=== PATIENT | female | born 1985 | race Caucasian/White ===

== ENCOUNTER 2017-06-07 09:30 | Emergency (ER) | payer MEDICAID | END 2017-06-07 12:15 | disposition home or self-care (01) | LOC: D.ER 09:30 | DX: B34.9 Viral infection, unspecified (principal); F17.200 Nicotine dependence, unspecified, uncomplicated ==

== ENCOUNTER 2018-05-30 18:28 | Emergency (ER) | payer MEDICAID ==
[~2018-05-30] VITALS: Ht 154.9 cm; Wt 56.2 kg
[2018-05-30 18:32] VITALS: BP 146/96; Ht 154.9 cm; Wt 56.2 kg
[2018-05-30] MEDS ORDERED: ALDACTONE100 MG PO (18:34)
[2018-05-30] MEDS ORDERED: BUPROPION XL150 MG PO (18:34)
[2018-05-30] MEDS ORDERED: CELEXA20 MG PO (18:35)
[2018-05-30 19:39] LABS: HCG URINE NEGATIVE (NEGATIVE)
== END 2018-05-30 20:13 | disposition home or self-care (01) ==
LOC: D.ER 18:28
PROVIDERS: Family Medicine
DX: Z32.00 Encounter for pregnancy test, result unknown (principal); F17.200 Nicotine dependence, unspecified, uncomplicated

== ENCOUNTER 2018-08-10 02:04 | Emergency (ER) | payer MEDICAID ==
[~2018-08-10] VITALS: Ht 154.9 cm; Wt 60.9 kg
[~2018-08-10 02:04] MED LIST: ALDACTONE100 MG PO; BUPROPION XL150 MG PO; CELEXA20 MG PO
[2018-08-10 02:08] VITALS: Ht 154.9 cm; Wt 60.9 kg
[2018-08-10] MEDS ORDERED: PRENAVITE1 TAB PO (02:09)
[2018-08-10] MEDS ORDERED: ZOFRAN4 MG PO (02:09)
[2018-08-10 02:28] LABS: BASOPHILS 0.3 % (0-2); HEMATOCRIT 39.2 % (36.0-48.0); HEMOGLOBIN 13.5 g/dL (12-16); IMMATURE GRANULOCYTES 0.1 % (0-5); LYMPHOCYTES 22.4 % (15-50); MCH 32.8 pg (26.0-34.0); MCHC 34.4 g/dL (31.0-37.0); MCV 95.1 fL (80.0-100.0); MEAN PLATELET VOLUME 10.3 fL (7.4-10.4); NEUTROPHILS 71.2 % (40-80); RBC 4.12 10x6/uL (4.00-5.40); RDW 12.6 % (11.5-14.5); WBC 10.8 10x3/uL (4.8-10.8)
[2018-08-10 02:34] LABS: PLATELET COUNT 235 10x3/uL (130-400)
[2018-08-10 02:36] LABS: APPEARANCE CLOUDY (CLEAR); BACTERIA NONE SEEN /hpf (NONE SEEN); BILIRUBIN NEGATIVE (NEGATIVE); COLOR YELLOW (YELLOW); GLUCOSE NEGATIVE (NEGATIVE); KETONE NEGATIVE (NEGATIVE); NITRITE NEGATIVE (NEGATIVE); PROTEIN NEGATIVE (NEGATIVE); UROBILINOGEN NORMAL (NORMAL); WHITE CELLS - URINE RARE /hpf (0-5)
[2018-08-10 02:38] LABS: HCG SERUM POSITIVE (NEGATIVE)
[2018-08-10 02:48] LABS: ALBUMIN 3.7 g/dL (3.4-5.0); ALKALINE PHOSPHATASE 68 U/L (46-116); ALT (SGPT) 51 U/L (10-68); BILIRUBIN - TOTAL 0.23 mg/dL (0.2-1.3); CALC OSMOLALITY 277 mosm/kg (275-300); CALCIUM 9.2 mg/dL (8.5-10.1); CARBON DIOXIDE 27.7 mmol/L (21.0-32.0); CHLORIDE - SERUM 103 mmol/L (98-107); CREATININE - SERUM 0.6 mg/dL (0.6-1.3); GLUCOSE 97 mg/dL (74-106); POTASSIUM - SERUM 3.6 mmol/L (3.5-5.1); SODIUM 140 mmol/L (136-145); UREA NITROGEN 11 mg/dL (7-18); eGFR NON AFRICAN AMERICAN > 90 mL/min (90-120)
[2018-08-10 03:10] LABS: HCG - QUANTITATIVE (MATERNAL) 59742 mIU/mL
[2018-08-10 04:36] VITALS: BP 118/67
== END 2018-08-10 04:36 | disposition home or self-care (01) ==
LOC: D.ER 02:04
PROVIDERS: Family Medicine
DX: O20.0 Threatened abortion (principal); Z3A.12 12 weeks gestation of pregnancy

== ENCOUNTER 2018-08-23 14:15 | Emergency (ER) | payer MEDICAID ==
[~2018-08-23] VITALS: Ht 154.9 cm; Wt 60.0 kg
[~2018-08-23 14:15] MED LIST changes: +PRENAVITE1 TAB PO; +ZOFRAN4 MG PO
[2018-08-23 14:23] VITALS: Ht 154.9 cm; Wt 60.0 kg
[2018-08-23 15:32] LABS: APPEARANCE SL CLDY (CLEAR); BILIRUBIN NEGATIVE (NEGATIVE); COLOR YELLOW (YELLOW); GLUCOSE NEGATIVE (NEGATIVE); KETONE MODERATE mg/dL (NEGATIVE); NITRITE NEGATIVE (NEGATIVE); PROTEIN NEGATIVE (NEGATIVE); RED CELLS - URINE OCC /hpf (0-5); UROBILINOGEN NORMAL (NORMAL); WHITE CELLS - URINE 0-5 /hpf (0-5)
[2018-08-23 15:33] LABS: BACTERIA MODERATE /hpf (NONE SEEN); MUCUS <1+ /lpf (NONE SEEN)
[2018-08-23] MEDS ORDERED: FLAGYL500 MG PO (19:16)
[2018-08-23] MEDS ORDERED: PHENERGAN25 M1 PO (19:16)
[2018-08-23] MEDS ORDERED: MACROBID100 MG PO (19:16)
[2018-08-23 19:39] VITALS: BP 111/51
== END 2018-08-23 19:41 | disposition home or self-care (01) ==
LOC: D.ER 14:15
PROVIDERS: Family Medicine
DX: O21.0 Mild hyperemesis gravidarum (principal); Z3A.14 14 weeks gestation of pregnancy

== ENCOUNTER 2018-10-23 18:19 | Outpatient (CLI) | payer MEDICAID ==
[~2018-10-23 18:19] MED LIST changes: +FLAGYL500 MG PO; +MACROBID100 MG PO; +PHENERGAN25 M1 PO
[2018-10-23 19:13] LABS: BASOPHILS 0.1 % (0-2); EOSINOPHILS 0.1 % (0-7); HEMOGLOBIN 12.9 g/dL (12-16); IMMATURE GRANULOCYTES 0.3 % (0-5); LYMPHOCYTES 9.1 % (15-50); MCH 33.3 pg (26.0-34.0); MCHC 34.9 g/dL (31.0-37.0); MCV 95.6 fL (80.0-100.0); MEAN PLATELET VOLUME 10.9 fL (7.4-10.4); MONOCYTES 3.3 % (2-11); NEUTROPHILS 87.1 % (40-80); RBC 3.87 10x6/uL (4.00-5.40); RDW 12.9 % (11.5-14.5); WBC 16.8 10x3/uL (4.8-10.8)
[2018-10-23 19:14] LABS: PLATELET COUNT 290 10x3/uL (130-400)
[2018-10-23 19:43] LABS: ANION GAP 16.5 mmol/L (8-16); CARBON DIOXIDE 26.2 mmol/L (21.0-32.0); POTASSIUM - SERUM 3.7 mmol/L (3.5-5.1)
[2018-10-23 21:14] LABS: APPEARANCE CLEAR (CLEAR); BILIRUBIN NEGATIVE (NEGATIVE); COLOR YELLOW (YELLOW); GLUCOSE 1000 mg/dL (NEGATIVE); KETONE MODERATE mg/dL (NEGATIVE); NITRITE NEGATIVE (NEGATIVE); PROTEIN NEGATIVE (NEGATIVE); UROBILINOGEN NORMAL (NORMAL)
[2018-10-24 00:09] LABS: APPEARANCE CLEAR (CLEAR); BILIRUBIN NEGATIVE (NEGATIVE); COLOR YELLOW (YELLOW); GLUCOSE 50 mg/dL (NEGATIVE); KETONE SMALL mg/dL (NEGATIVE); NITRITE NEGATIVE (NEGATIVE); PROTEIN NEGATIVE (NEGATIVE); UROBILINOGEN NORMAL (NORMAL)
[2018-10-24 06:51] LABS: BASOPHILS 0.1 % (0-2); EOSINOPHILS 0.2 % (0-7); IMMATURE GRANULOCYTES 0.2 % (0-5); LYMPHOCYTES 18.8 % (15-50); MCH 32.3 pg (26.0-34.0); MCHC 34.4 g/dL (31.0-37.0); MEAN PLATELET VOLUME 10.9 fL (7.4-10.4); MONOCYTES 4.8 % (2-11); NEUTROPHILS 75.9 % (40-80); RDW 13.1 % (11.5-14.5)
[2018-10-24 07:08] LABS: HEMATOCRIT 28.2 % (36.0-48.0); HEMOGLOBIN 9.7 g/dL (12-16); PLATELET COUNT 223 10x3/uL (130-400); WBC 11.3 10x3/uL (4.8-10.8)
[2018-10-24 09:01] LABS: AMYLASE - SERUM 44 U/L (25-115); LIPASE 66 U/L (73-393)
[2018-10-24 09:08] VITALS: Ht 154.9 cm
== END 2018-10-24 14:15 | disposition home or self-care (01) ==
LOC: D.LDO 18:19 → D.LD 10-24 00:12 → D.LDO 10-24 14:15
PROVIDERS: ATTEND Obstetrics & Gynecology
DX: O21.9 Vomiting of pregnancy, unspecified (principal); Z3A.21 21 weeks gestation of pregnancy

== ENCOUNTER 2018-12-12 20:18 | Emergency (ER) | payer MEDICAID ==
[2018-12-12] MEDS ORDERED: ACETAMINOPHEN500 M1 PO (21:05)
[2019-01-29 05:40] VITALS: BMI 27.8
== END 2018-12-12 20:25 | disposition short-term general hospital (02) ==
LOC: D.ER 20:18
DX: R51 Headache (principal)

== ENCOUNTER → 2018-12-12 20:44 | Outpatient (CLI) | payer MEDICAID ==
[~2018-12-12 20:44] MED LIST changes: +ACETAMINOPHEN500 M1 PO
[2018-12-12 21:32] LABS: APPEARANCE CLEAR (CLEAR); BILIRUBIN NEGATIVE (NEGATIVE); COLOR YELLOW (YELLOW); GLUCOSE NEGATIVE (NEGATIVE); KETONE NEGATIVE (NEGATIVE); NITRITE NEGATIVE (NEGATIVE); PROTEIN NEGATIVE (NEGATIVE); UROBILINOGEN NORMAL (NORMAL)
[2018-12-12 21:33] LABS: RED CELLS - URINE 0-5 /hpf (0-5)
[2018-12-12 21:34] LABS: BACTERIA MODERATE /hpf (NONE SEEN); WHITE CELLS - URINE 0-5 /hpf (0-5)
== END | disposition home or self-care (01) ==
LOC: D.LDO 20:44
PROVIDERS: ATTEND Obstetrics & Gynecology
DX: O26.893 Other specified pregnancy related conditions, third trimester (principal); Z3A.29 29 weeks gestation of pregnancy; R51 Headache

== ENCOUNTER → 2019-01-14 12:22 | Outpatient (CLI) | payer MEDICAID | END | disposition home or self-care (01) | LOC: D.LDO 12:22 | PROVIDERS: ATTEND Obstetrics & Gynecology | DX: O26.619 Liver and biliary tract disorders in pregnancy, unspecified trimester (principal); K83.1 Obstruction of bile duct ==

== ENCOUNTER → 2019-01-17 14:24 | Outpatient (CLI) | payer MEDICAID ==
[~2019-01-17 14:24] MED LIST changes: +HYDROCODON-ACE1 EA10 PO; +MOTRIN600 MG PO
[2019-01-29 05:40] VITALS: BMI 27.8
== END | disposition home or self-care (01) ==
LOC: D.LDO 14:24
PROVIDERS: ATTEND Obstetrics & Gynecology
DX: O26.893 Other specified pregnancy related conditions, third trimester (principal); Z3A.34 34 weeks gestation of pregnancy

== ENCOUNTER → 2019-01-23 12:32 | Outpatient (CLI) | payer MEDICAID ==
[2019-01-29 05:40] VITALS: BMI 27.8
== END | disposition home or self-care (01) ==
LOC: D.LDO 12:32
PROVIDERS: ATTEND Obstetrics & Gynecology
DX: O26.893 Other specified pregnancy related conditions, third trimester (principal); Z3A.35 35 weeks gestation of pregnancy

== ENCOUNTER → 2019-01-24 21:39 | Outpatient (CLI) | payer MEDICAID ==
[2019-01-29 05:40] VITALS: BMI 27.8
== END | disposition home or self-care (01) ==
LOC: D.LDO 21:39
PROVIDERS: ATTEND Obstetrics & Gynecology
DX: O36.8130 Decreased fetal movements, third trimester, not applicable or unspecified (principal)

== ENCOUNTER → 2019-01-28 15:43 | Outpatient (CLI) | payer MEDICAID | END | disposition home or self-care (01) | LOC: D.LDO 15:43 | PROVIDERS: ATTEND Obstetrics & Gynecology | DX: O26.613 Liver and biliary tract disorders in pregnancy, third trimester (principal); K83.1 Obstruction of bile duct; Z3A.36 36 weeks gestation of pregnancy ==

== ENCOUNTER 2019-01-29 05:30 | Inpatient (IN) | payer MEDICAID ==
[~2019-01-29] VITALS: Ht 154.9 cm; Wt 66.7 kg
[~2019-01-29 05:30] MED LIST changes: -HYDROCODON-ACE1 EA10 PO; -MOTRIN600 MG PO
[2019-01-29 05:40] VITALS: BP 119/80; Ht 154.9 cm; Wt 66.7 kg
[2019-01-29 06:28] LABS: HEMOGLOBIN 8.2 g/dL (12-16); MCH 30.5 pg (26.0-34.0); MCHC 34.2 g/dL (31.0-37.0); MCV 89.2 fL (80.0-100.0); MEAN PLATELET VOLUME 11.9 fL (7.4-10.4); RBC 2.69 10x6/uL (4.00-5.40); RDW 12.6 % (11.5-14.5); WBC 15.2 10x3/uL (4.8-10.8)
[2019-01-29 06:44] LABS: UDS - AMPHET NEGATIVE QUAL (NEGATIVE); UDS - BARB NEGATIVE QUAL (NEGATIVE); UDS - BENZO NEGATIVE QUAL (NEGATIVE); UDS - COCAINE NEGATIVE QUAL (NEGATIVE); UDS - OPIATE NEGATIVE QUAL (NEGATIVE); UDS - PCP NEGATIVE QUAL (NEGATIVE); UDS - THC NEGATIVE QUAL (NEGATIVE)
[2019-01-29 08:35] LABS: APPEARANCE CLOUDY (CLEAR); BILIRUBIN NEGATIVE (NEGATIVE); COLOR YELLOW (YELLOW); GLUCOSE NEGATIVE (NEGATIVE); KETONE NEGATIVE (NEGATIVE); NITRITE NEGATIVE (NEGATIVE); PROTEIN TRACE mg/dL (NEGATIVE); UROBILINOGEN NORMAL (NORMAL)
[2019-01-29 08:36] LABS: AMORPHOUS SEDIMENT >1+ /lpf (NONE SEEN); BACTERIA MODERATE /hpf (NONE SEEN); GRANULAR CAST RARE /lpf (NONE SEEN); MUCUS <1+ /lpf (NONE SEEN); RED CELLS - URINE OCC /hpf (0-5); WHITE CELLS - URINE OCC /hpf (0-5)
--- NOTE | 2019-01-29 11:15 | NUR ---
1028 VIABLE BABY BOY DELIVERED
--- NOTE | 2019-01-29 11:35 | NUR ---
PALPATED FUNDUS FIRM AND MIDLINE
--- NOTE | 2019-01-29 11:51 | NUR ---
120CC OF CLEAR YELLOW URINE IN MCCABE BAG ON ADMIT
[2019-01-29 12:05] VITALS: BP 121/70
--- NOTE | 2019-01-29 12:45 | NUR ---
pt received to room by bed, she is drowsy but answers questions correctly in regards to her name, date of and knew where she was. fundus firm at u/1 with scant lochia noted. spears cath to bedside drain with 50ml noted. scd bilat and placed on pump. iv to left hand infusing 20units pitocin in ns per orders. rates pain at 0/10 at this time. family at bedside. call light in reach with side rails up x 2.
--- NOTE | 2019-01-29 13:15 | NUR ---
ice pack to incision site, site is covered with white bandage that is noted to be clean and dry at this time. fundus firm upon massage at u/1, light bleeding without clots, lobito pad changed. large sprite per request, pt denies nausea. nursery number provided, call light in reach. family at bedside.
--- NOTE | 2019-01-29 13:30 | NUR ---
rates pain at 3/10 after sdet started and tordol given per orders. spears cath with 100ml clear urine to colllection canister. denies needs at this time.
--- NOTE | 2019-01-29 14:15 | NUR ---
fundus firm at u/1, scant bleeding noted. lobito care per rn with pads changed. large ice water per request and pt turned to right side with pillow to her back. family at bedside. call light in reach.
--- NOTE | 2019-01-29 14:50 | NUR ---
repostioned to her back so that she is able to hold and feed . rates pain at 3/10 and is using research and evaluation analyst button when needed. call light in reach, side rails up x 2.
[2019-01-29 15:59] LABS: BASOPHILS 0.1 % (0-2); EOSINOPHILS 0.1 % (0-7); IMMATURE GRANULOCYTES 0.3 % (0-5); LYMPHOCYTES 10.2 % (15-50); MCH 30.6 pg (26.0-34.0); MCHC 34.6 g/dL (31.0-37.0); MCV 88.6 fL (80.0-100.0); MEAN PLATELET VOLUME 11.7 fL (7.4-10.4); MONOCYTES 4.9 % (2-11); NEUTROPHILS 84.4 % (40-80); RDW 12.7 % (11.5-14.5); WBC 17.9 10x3/uL (4.8-10.8)
[2019-01-29 16:02] LABS: HEMATOCRIT 29.5 % (36.0-48.0); HEMOGLOBIN 10.2 g/dL (12-16); PLATELET COUNT 206 10x3/uL (130-400); RBC 3.33 10x6/uL (4.00-5.40)
--- NOTE | 2019-01-29 16:20 | NUR ---
SCD pump only seems to be working on left side. central notified and pump changed.
--- NOTE | 2019-01-29 17:30 | NUR ---
large cup of ice per request. rates pain at 3/10, fundus firm at u/1 with light bleeding noted. visiting with friends/family at this time. call light with in her reach, in room at this time.
--- NOTE | 2019-01-29 18:45 | NUR ---
iv volumes cleared and charted on i/o flowsheet. total of 750ml output also to flowsheet. fundus firm at u/1 with scant bleeding noted. to lobito pad. bedside report to Michaela Osborne rn.
[2019-01-29 19:17] VITALS: BP 104/57
--- NOTE | 2019-01-29 19:17 | NUR ---
PATIENT SITTING UP IN BED. FAMILY AT BEDSIDE. DENIES PAIN AT THIS TIME. VITAL SIGNS AND ASSESSMENT DONE. RESPIRATIONS AT EASE. LUNG SOUNDS CLEAR IN ALL ESPINAL. HEART REGULAR RATE AND RHYTHM. AMBDOMEN SOFT AND TENDER TO TOUCH. BOWEL SOUNDS PRESENT IN ALL QUADRANTS. FUNDUS FIRM AND 1 BELOW UMBILICUS. DRESSING TO INCISION. DRESSING INTACT WITH NO REDNESS,EDEMA, OR DRAINAGE NOTED. SCANT AMOUNT OF LOCHIA NOTED TO AMADO PAD. FLOEY CATHETER INTACT AND DRAINING CLEAR YELLOW URINE TO GRAVITY. AMADO CARE DONE AT THIS TIME. PADS CHANGED. NO EDEMA NOTED TO BLE. SCD'S ON AND WORKING. IV TO L HAND INFUSING PITOCIN @ 125 ML/HR. NO REDNESS OR EDEMA NOTED TO SITE. PATIENT DENIES ANY NEEDS AT THIS TIME. BED IN LOWEST POSITION, SIDE RAILS UP X 2, C/L AND WATER WITHIN REACH.
--- NOTE | 2019-01-29 19:17 | NUR ---
PATIENT SITTING UP IN BED. FAMILY AT BEDSIDE. DENIES PAIN AT THIS TIME. VITAL SIGNS AND ASSESSMENT DONE. RESPIRATIONS AT EASE. LUNG SOUNDS CLEAR IN ALL ESPINAL. HEART REGULAR RATE AND RHYTHM. ABDOMEN SOFT AND TENDER TO TOUCH. BOWEL SOUNDS PRESENT IN ALL QUADRANTS. FUNDUS FIRM AND 1 BELOW UMBILICUS. SCANT AMOUNT OF LOCHIA NOTED TO AMADO PAD. MCCABE CATHETER INTACT AND DRAINING CLEAR YELLOW URINE TO GRAVITY. AMADO CARE GIVEN AT THIS TIME. PADS CHANGED. NO EDEMA NOTED TO BLE. SCD'S ON BLE. SCD'S ON AND WORKING. PERIPHERAL IV TO R HAND INFUSING PITOCIN @ 125 ML/HR. SL TO L HAND. PATIENT DENIES ANY NEEDS AT THIS TIME. BED IN LOWEST POSITION. SIDE RAILS UP X 2, C/L AND WATER WITHIN REACH.
--- NOTE | 2019-01-29 20:30 | NUR ---
PATIENT SITTING UP IN BED EATING. FAMILY AT BEDSIDE. DENIES ANY NEEDS OR CONCERNS. NO SIGNS OF DISTRESS NOTED. BED IN LOWEST POSITION, SIDE RAILS UP X 2, C/L AND WATER WITHIN REACH.
--- NOTE | 2019-01-29 22:00 | NUR ---
PATIENT SITTING UP IN BED. LYING IN OPEN CRIB WITH EYES CLOSED. AT BEDSIDE. PATIENT DENIES PAIN. DENIES ANY NEEDS OR CONCERNS AT THIS TIME. BED IN LOWEST POSITION, SIDE RAILS UP X 2, C/L AND WATER WITHIN REACH.
--- NOTE | 2019-01-29 23:34 | NUR ---
PATIENT SITTING UP IN BED. AT BEDSIDE. STATES PAIN 6 OUT OF 10. DILAUDID VICE PRESIDENT OF ACADEMIC AFFAIRS SYRINGE CHANGED OUT, VERIFIED WITH GRIS BELCHER RN. INSTRUCTED PATIENT ON USE OF INCENTIVE SPIROMETER AND DEEP BREATHING AND COUGHING. PATIENT DEMONSTRATED KNOWLEDGE. DENIES ANY FURTHER NEEDS. BED IN LOWEST POSITION, SIDE RAILS UP X 2, C/L, WATER, AND VICE PRESIDENT OF ACADEMIC AFFAIRS BUTTON WITHIN REACH.
--- NOTE | 2019-01-29 23:47 | NUR ---
PATIENT SITTING UP IN BED. STATES PAIN 6 OUT OF 10. TORADOL 30 MG ADMINISTERED SLOW IVP. PATIENT DENIES ANY FURTHER NEEDS. BED IN LOWEST POSITION, SIDE RAILS UP X 2, C/L, WATER, AND PRODUCT APPLICATIONS SCIENTIST BUTTON WITHIN REACH.
--- NOTE | 2019-01-30 01:06 | NUR ---
PATIENT LYING QUIETLY IN BED WITH EYES CLOSED. PATIENT LYING ON R SIDE. EASILY AROUSED. DENIES PAIN AT THIS TIME. DENIES ANY NEEDS OR CONCERNS. BED IN LOWEST POSITION, SIDE RAILS UP X 2, C/L, WATER, AND PREPRESS PROOFER BUTTON WITHIN REACH.
--- NOTE | 2019-01-30 03:11 | NUR ---
PATIENT LYING QUIETLY IN BED WITH EYES CLOSED. EASILY AROUSED. DENIES PAIN. DENIES ANY NEEDS. BED IN LOWEST POSITION, SIDE RAILS UP X 2, C/L, WATER, AND MOBILE PATROL OFFICER BUTTON WITHIN REACH.
--- NOTE | 2019-01-30 04:00 | NUR ---
PATIENT LYING IN BED WITH EYES CLOSED. RESPIRATIONS AT EASE. NO SIGNS OF DISTRESS NOTED. BED IN LOWEST POSITION, SIDE RAILS UP X 2, C/L, WATER, AND STEAM BOX OPERATOR BUTTON WITHIN REACH.
[2019-01-30 05:28] VITALS: BP 90/53
--- NOTE | 2019-01-30 05:28 | NUR ---
PATIENT LYING QUIETLY IN BED WITH EYES CLOSED. RESPIRATIONS AT EASE. EASILY AROUSED. VITAL SIGNS DONE. MCCABE BAG EMPTIED. 500 CC'S OF CLEAR YELLOW URINE OBTAINED. VOLUMES CLEARED FROM IV PUMP. PATIENT DENIES PAIN AT THIS TIME. DENIES ANY NEEDS OR CONCERNS. BED IN LOWEST POSITION, SIDE RAILS UP X 2, C/L, WATER, AND PEDIATRIC CARE COORDINATOR BUTTON WITHIN REACH.
[2019-01-30 07:09] VITALS: BP 101/58
--- NOTE | 2019-01-30 07:09 | NUR ---
RECEIVED PT IN SEMI-CLIFFORD'S POSITION IN BED. AWAKE. AAO X 3. VSS. HRRR WITHOUT AUDIBLE MURMUR. BBS CLEAR. BS X 4. ABDOMEN SOFT/NON-DISTENDED. FUNDUS FIRM AT U/U. RUBRA LOCHIA SCANT AMT. NO CLOTS NOTED. ABDOMINAL DRESSING DRY WITHOUT DRAINAGE NOTED. NEG HOMANS' SIGN. PPP. MILD NON-PITTING EDEMA NOTED TO HANDS AND FEET. SCDS ON BLE. PUMP ON. MCCABE DC'D WITH 50 ML OF NICOLE COLORED URINE NOTED IN BAG. PT C/O INCISIONAL PAIN OF "6" ON 0-10 PAIN SCALE. PIV OF NS WITH PITOCIN 20 UNITS INFUSING AT 125 ML/HR. SITE CLEAR TO LEFT WRIST. SR UP X2. CALL LIGHT IN REACH.
--- NOTE | 2019-01-30 07:13 | NUR ---
TORADOL 30 MG GIVEN SIVP PER Riana BLANTON RN.
[2019-01-30 07:14] LABS: RAPID PLASMA REAGIN Non Reactive (Non Reactive)
[2019-01-30 07:20] LABS: BASOPHILS 0.2 % (0-2); EOSINOPHILS 0.5 % (0-7); HEMATOCRIT 25.9 % (36.0-48.0); HEMOGLOBIN 8.8 g/dL (12-16); IMMATURE GRANULOCYTES 0.2 % (0-5); LYMPHOCYTES 19.3 % (15-50); MCH 30.3 pg (26.0-34.0); MCV 89.3 fL (80.0-100.0); MEAN PLATELET VOLUME 11.8 fL (7.4-10.4); MONOCYTES 5.6 % (2-11); NEUTROPHILS 74.2 % (40-80); PLATELET COUNT 203 10x3/uL (130-400)
[2019-01-30 07:23] LABS: WBC 11.5 10x3/uL (4.8-10.8)
--- NOTE | 2019-01-30 08:05 | NUR ---
PT SITTING UP IN BED. HOLDS WITH MUCH WARMTH SHOWN. DENIES NEEDS OR C/O.
--- NOTE | 2019-01-30 10:00 | NUR ---
PT SITTING UP IN BED. PERICARE DONE. MOD RUBRA LOCHIA NOTED. NO CLOTS NOTED. PERIPADS CHANGED. PT TARA WELL. DENIES URGE TO VOID.
--- NOTE | 2019-01-30 10:20 | NUR ---
PT C/O PAIN TO SL TO RIGHT AC. DC'D WITH CATHELON INTACT. PRESSURE BANDAGE TO SITE.
--- NOTE | 2019-01-30 11:14 | NUR ---
PT C/O INCISIONAL PAIN OF "4" ON 0-10 PAIN SCALE. NORCO 10/325 GIVEN PO ORDERED. PT INSTRUCTED ON MED. VERBALIZES UNDERSTANDING.
--- NOTE | 2019-01-30 12:40 | NUR ---
DR WATKINS VISITS WITH PT.
--- NOTE | 2019-01-30 12:45 | NUR ---
PT OOB AND AMB TO BR. VOIDS 350 ML OF CLEAR, YELLOW URINE. PERICARE DONE PER PT. PT AMBULATES IN YOUNGBLOOD AT THIS TIME. TARA ACTIVITY WELL.
--- NOTE | 2019-01-30 13:34 | NUR ---
PT C/O HEADACHE AND ABDOMINAL PAIN OF "3" ON 0-10 PAIN SCALE. MOTRIN 600 MG GIVEN PO ORDERED. PT INSTRUCTED ON MED. VERBALIZES UNDERSTANDING.
--- NOTE | 2019-01-30 14:29 | NUR ---
PT SITTING UP IN BED. VISITS WITH FAMILY. DENIES NEEDS OR C/O.
--- NOTE | 2019-01-30 15:02 | NUR ---
PT C/O INCISIONAL PAIN OF "5" ON 0-10 PAIN SCALE. NORCO 10/325 GIVEN PO ORDERED. PT INSTRUCTED ON MED. VERBALIZES UNDERSTANDING.
--- NOTE | 2019-01-30 16:00 | NUR ---
PT SITTING UP IN BED. VISITS WITH FAMILY. DENIES C/O OR NEEDS.
--- NOTE | 2019-01-30 17:05 | NUR ---
PT SITTING UP IN BED. STATES PAIN MEDICATION RELIEVING PAIN. STATES NOT PASSING MUCH GAS. PT ENCOURAGED TO AMBULATE IN YOUNGBLOOD AND SHOWER. PT STATES WILL WAIT UNTIL TAKES 1900 DOSE OF PAIN MED FIRST.
--- NOTE | 2019-01-30 18:01 | NUR ---
PT AMBULATORY IN ROOM. HOLDS WITH MUCH WARMTH SHOWN. 350 ML OF DARK, YELLOW URINE NOTED IN SPECIPAN.
--- NOTE | 2019-01-30 19:02 | NUR ---
SO AT DESK. STATES PT ASKING FOR BOTH PAIN MEDS AT THIS TIME. THIS NURSE TO ROOM. PT AMBULATORY IN ROOM. NORCO 10/325 AND MOTRIN 600 MG GIVEN PO ORDERED. PT INSTRUCTED ON MEDICATION. VERBALIZES UNDERSTANDING.
[2019-01-30 19:50] VITALS: BP 109/76
--- NOTE | 2019-01-30 19:50 | NUR ---
SHIFT ASSESSMENT COMPLETED, SEE FLOWSHEET
--- NOTE | 2019-01-30 20:55 | NUR ---
PATIENT VISITING WITH FAMILY, DENIES PAIN OR NEEDS AT THIS TIME. WILL CONTINUE TO MONITOR.
[2019-01-30 23:29] VITALS: BP 100/71
--- NOTE | 2019-01-30 23:29 | NUR ---
NORCO 10/325MG PO PER PT REQUEST.SEE EMAR. PT DENIES OTHER NEEDS. WILL CONTINUE TO MONITOR.
--- NOTE | 2019-01-31 00:15 | NUR ---
PT AMBULATED TO BATHROOM, VOIDED 700ML CLEAR YELLOW URINE. VS WNL. PT AMBULATED TO ROOM 1257 AT THIS TIME.
--- NOTE | 2019-01-31 02:10 | NUR ---
PT SLEEPING WITH EVEN RESPIRATIONS, EASILY AROUSED TO VERBAL STIMULI. PT DENIES NEEDS OR PAIN AT THIS TIME. WILL CONTINUE TO MONITOR
--- NOTE | 2019-01-31 03:13 | NUR ---
MOTRIN ADMINISTERED PER PT REQUEST AND MD ORDERS. SEE EMAR
--- NOTE | 2019-01-31 03:30 | NUR ---
CALLED TO THE ROOM BY THE PATIENT AT THIS TIME, STATES THAT THE HEAD OF HER BED KEEPS GOING UP AND DOWN AND SHE HASNT TOUCHED THE BUTTONS, STATES THAT SHE WAS SLEEPING. JUST THEN THE HEAD OF THE BED WENT COMPLETELY UP TO 90 DEGREES AND GOT STUCK. A WHIRRING NOISE WAS NOTED UNTIL BED WAS UNPLUGGED. BED REMOVED FROM ROOM AND ANOTHER BED BROUGHT IN.
--- NOTE | 2019-01-31 07:46 | NUR ---
RECEIVED PT SITTING UP IN BED. AWAKE. AAO X 3. VSS. HRRR WITHOUT AUDIBLE MURMUR. BBS CLEAR. BS X 4. ABDOMEN SOFT/SLIGHTLY DISTENDED. PT STATES PASSING GAS. NO BM YET. PT ENCOURAGED TO CONSUME WARM FLUIDS. ABDOMINAL INCISION WITHOUT DRAINAGE NOTED. SMALL AMT OF BRUISING NOTED. FUNDUS FIRM AT U/1. RUBRA LOCHIA SMALL AMT. NO CLOTS OR HEAVY BLEEDING PER PT STATES. NEG HOMANS' SIGN. PPP. NO EDEMA NOTED TO BLE. PT C/O PAIN TO SL SITE. SL DC'D WITH CATHELON INTACT. PRESSURE BANDAGE TO SITE. PT TARA WELL. NORCO 10/325 GIVEN PO ORDERED FOR PT C/O INCISIONAL PAIN OF "3" ON 0-10 PAIN SCALE. SR UP X 2. CALL LIGHT IN REACH.
[2019-01-31 07:47] VITALS: BP 123/80
--- NOTE | 2019-01-31 09:40 | NUR ---
DR WATKINS VISITS WITH PT.
--- NOTE | 2019-01-31 09:45 | NUR ---
DR WATKINS ON UNIT. ORDER RECEIVED TO [facility].
[2019-01-31] MEDS ORDERED: HYDROCODON-ACE1 EA10 PO (09:59)
[2019-01-31] MEDS ORDERED: MOTRIN600 MG PO (09:59)
--- NOTE | 2019-01-31 11:24 | NUR ---
TDAP 0.5 ML GIVEN IM TO LEFT DELTOID. BANDAID TO SITE. PT TARA WELL.
--- NOTE | 2019-01-31 12:30 | NUR ---
PT SITTING UP IN BED. HOLDS . STATES WENT HOME TO GET CARSEAT FOR . PT DENIES NEEDS OR C/O.
--- NOTE | 2019-01-31 12:45 | NUR ---
PT READY FOR DISCHARGE. DISCHARGED IN STABLE CONDITION WITH VIA WHEELCHAIR PER AUXILIARY STAFF TO PRIVATE VEHICLE.
--- NOTE | 2019-02-11 10:58 | OP ---
PATIENT NAME: CASSIE WEINER MEDICAL RECORD: [id number] :87 LOCATION:[facility] [id number] ADMISSION DATE:01/29/19 SURGEON: LIAM TAI MD DATE OF OPERATION: 01/29/2019 PREOPERATIVE DIAGNOSES: 1. Intrauterine at 36 weeks and 3 days. 2. Intrahepatic cholestasis of . 3. History of previous section. POSTOPERATIVE DIAGNOSES: 1. Intrauterine at 36 weeks and 3 days. 2. Intrahepatic cholestasis of . 3. History of previous section. PROCEDURE: Repeat low transverse section. SURGEON: Liam Tai MD ANESTHESIA: General by spinal. INTRAVENOUS FLUIDS: Per anesthesia record, the patient also received 1 unit of packed red blood cells prior to surgery and 1 intraoperatively. FINDINGS: 1. Viable infant, Apgars 9 at one and 9 at five. 2. Placenta delivered manually intact, 3-vessel cord noted. 3. Normal appearing adnexa bilaterally. COMPLICATIONS: None apparent. SPECIMENS: Placenta and cord for gases. PROCEDURE IN DETAIL: The patient was taken to the operating room, where regional anesthesia was achieved without any difficulty with a spinal. The patient was then prepped and draped in normal sterile fashion in the dorsal supine position. SCDs were on and functioning appropriately. A Orosco catheter was placed and draining freely. At that point, a repeat Pfannenstiel skin incision was made and centered down underlying subcutaneous fat to the level of the fascia. The fascia was excised in the midline with scalpel and extended bilaterally using the Mallory scissors. Superior and inferior aspects of the fascial incision were then grasped with Melo clamps times 2, tented upward, and sharply dissected from the underlying rectus muscle using the Bovie cautery and Mallory scissors. Rectus muscles were then bluntly in the midline and the peritoneum entered sharply at the superior aspect of the incision using the Metzenbaum scissors. The peritoneal incision was extended bilaterally using the Metzenbaum scissors. The bladder flap was created by excising the anterior leaf of the broad ligament across the lower uterine segment. A bladder flap was further developed digitally and a bladder blade was placed into the pelvis. Low transverse incision was made, extended using the Pelosi method. The vertex was delivered atraumatically followed by the body and was bulb suctioned upon delivery. Cord was clamped times 2, cut, and the was handed to awaiting nursery team. Cord was obtained for gases. The placenta was removed manually and intact. A 3-vessel cord was noted. Uterus exteriorized, cleared of all clots and debris and vigorously massaged. A good uterine tone was noted. OPERATIVE REPORT [id number] CASSIE SCHMITTN The uterine incision was repaired with 0 Vicryl in a running locked fashion times 2 with good hemostasis noted. Posterior cul-de-sac was then thoroughly irrigated and uterus was replaced into the pelvis. Anterior cul-de-sac was then thoroughly irrigated. Good hemostasis again noted from the uterine incision. COUNTS: Correct times 2 for needles, sponges, and instruments. The fascia was repaired with 0 loop PDS times 1 and the skin repaired with 3-0 Monocryl in a running subcutaneous fashion and covered with Dermabond. The patient tolerated procedure well, transferred to postanesthesia recovery stable without incident. TRANSINT:[id number] Voice Confirmation ID: [id number] DOCUMENT ID: [id number] LIAM TAI MD at 1058 CC: [id number] DICTATION DATE: 02/07/19 1536 PSYCHOPAEDIC NURSE: 02/07/[id number] DIS IN 01/31/19 [facility] [address] [place] [address]
== END 2019-01-31 12:45 | disposition home or self-care (01) | DRG 786 ==
LOC: D.LD 05:30
PROVIDERS: ADMIT Obstetrics & Gynecology; ATTEND Obstetrics & Gynecology
PROC: 10D00Z1 Extraction of Products of Conception, Low, Open Approach (ICD-10-PCS; principal; 2019-01-29 07:30)
DX: O26.62 Liver and biliary tract disorders in childbirth (principal); Z37.0 Single live birth; K83.1 Obstruction of bile duct; O60.14X0 Preterm labor third trimester with preterm delivery third trimester, not applicable or unspecified; Z3A.36 36 weeks gestation of pregnancy; O99.344 Other mental disorders complicating childbirth; F32.9 Major depressive disorder, single episode, unspecified; O99.334 Smoking (tobacco) complicating childbirth

== ENCOUNTER 2019-03-23 19:19 | Emergency (ER) | payer MEDICAID ==
[~2019-03-23] VITALS: Ht 154.9 cm; Wt 60.9 kg
[~2019-03-23 19:19] MED LIST changes: +HYDROCODON-ACE1 EA10 PO; +MOTRIN600 MG PO
[2019-03-23 19:23] VITALS: Ht 154.9 cm; Wt 60.9 kg
[2019-03-23 19:48] LABS: BASOPHILS 0.2 % (0-2); EOSINOPHILS 0 % (0-7); HEMATOCRIT 43.1 % (36.0-48.0); HEMOGLOBIN 13.9 g/dL (12-16); IMMATURE GRANULOCYTES 0.3 % (0-5); LYMPHOCYTES 5.6 % (15-50); MCH 29.8 pg (26.0-34.0); MCHC 32.3 g/dL (31.0-37.0); MCV 92.5 fL (80.0-100.0); MEAN PLATELET VOLUME 10.6 fL (7.4-10.4); MONOCYTES 4.4 % (2-11); NEUTROPHILS 89.5 % (40-80); PLATELET COUNT 382 10x3/uL (130-400); RBC 4.66 10x6/uL (4.00-5.40); RDW 14.4 % (11.5-14.5); WBC 19.4 10x3/uL (4.8-10.8)
[2019-03-23 20:03] LABS: ALBUMIN 4.6 g/dL (3.4-5.0); ANION GAP 16.9 mmol/L (8-16); BILIRUBIN - TOTAL 0.31 mg/dL (0.2-1.3); CALCIUM 9.9 mg/dL (8.5-10.1); CARBON DIOXIDE 24.7 mmol/L (21.0-32.0); CREATININE - SERUM 1.2 mg/dL (0.6-1.3); POTASSIUM - SERUM 4.6 mmol/L (3.5-5.1); PROTEIN - SERUM 7.7 g/dL (6.4-8.2)
[2019-03-23 20:07] LABS: HCG SERUM NEGATIVE (NEGATIVE)
[2019-03-23 21:18] LABS: APPEARANCE CLEAR (CLEAR); COLOR YELLOW (YELLOW); NITRITE NEGATIVE (NEGATIVE); PROTEIN TRACE mg/dL (NEGATIVE)
[2019-03-23 21:19] LABS: BILIRUBIN NEGATIVE (NEGATIVE); GLUCOSE NEGATIVE (NEGATIVE); KETONE LARGE mg/dL (NEGATIVE); UROBILINOGEN NORMAL (NORMAL)
[2019-03-23 21:21] LABS: BACTERIA FEW /hpf (NEGATIVE); CALCIUM OXALATE CRYSTALS 0-5 /hpf (NONE SEEN); EPITHELIAL CELLS 0-5 /hpf (0-5); MUCUS <1+ /lpf (NONE SEEN); WHITE CELLS - URINE 0-5 /hpf (NEGATIVE)
[2019-03-24 00:13] VITALS: BP 113/75
== END 2019-03-24 00:13 | disposition home or self-care (01) ==
LOC: D.ER 19:19
PROVIDERS: Family Medicine
DX: N20.0 Calculus of kidney (principal); F17.210 Nicotine dependence, cigarettes, uncomplicated

== ENCOUNTER 2020-01-01 11:25 | Emergency (ER) | payer MEDICAID ==
[~2020-01-01] VITALS: Ht 154.9 cm; Wt 65.0 kg
[2020-01-01 11:33] VITALS: Ht 154.9 cm; Wt 65.0 kg
[2020-01-01 12:34] LABS: ALBUMIN 4.5 g/dL (3.4-5.0); ANION GAP 10.4 mmol/L (8-16); BASOPHILS 0.2 % (0-2); BILIRUBIN - TOTAL 0.31 mg/dL (0.2-1.3); CARBON DIOXIDE 30.5 mmol/L (21.0-32.0); CREATININE - SERUM 1.3 mg/dL (0.6-1.3); EOSINOPHILS 0.5 % (0-7); HEMATOCRIT 44.4 % (36.0-48.0); HEMOGLOBIN 14.5 g/dL (12-16); IMMATURE GRANULOCYTES 0.2 % (0-5); LYMPHOCYTES 10.9 % (15-50); MAGNESIUM - SERUM 1.5 mg/dL (1.8-2.4); MCH 31.2 pg (26.0-34.0); MCHC 32.7 g/dL (31.0-37.0); MCV 95.5 fL (80.0-100.0); MEAN PLATELET VOLUME 11.2 fL (7.4-10.4); NEUTROPHILS 81.2 % (40-80); PLATELET COUNT 352 10x3/uL (130-400); POTASSIUM - SERUM 3.9 mmol/L (3.5-5.1); RBC 4.65 10x6/uL (4.00-5.40); RDW 14.2 % (11.5-14.5); WBC 12.2 10x3/uL (4.8-10.8)
[2020-01-01 12:40] LABS: CALCIUM 12.5 mg/dL (8.5-10.1)
[2020-01-01 12:41] LABS: BILIRUBIN NEGATIVE (NEGATIVE); GLUCOSE NEGATIVE (NEGATIVE); KETONE NEGATIVE (NEGATIVE); NITRITE NEGATIVE (NEGATIVE); UROBILINOGEN NORMAL (NORMAL)
[2020-01-01 12:42] LABS: AMORPHOUS SEDIMENT <1+ /lpf (NONE SEEN); BACTERIA FEW /hpf (NEGATIVE); GRANULAR CAST RARE /lpf (NONE SEEN); RED CELLS - URINE 0-5 /hpf (0-5); WHITE CELLS - URINE 0-5 /hpf (NEGATIVE)
[2020-01-01 13:00] LABS: UDS - AMPHET NEGATIVE QUAL (NEGATIVE); UDS - BARB NEGATIVE QUAL (NEGATIVE); UDS - BENZO NEGATIVE QUAL (NEGATIVE); UDS - COCAINE NEGATIVE QUAL (NEGATIVE); UDS - OPIATE NEGATIVE QUAL (NEGATIVE); UDS - PCP NEGATIVE QUAL (NEGATIVE); UDS - THC POSITIVE QUAL (NEGATIVE)
[2020-01-01] MEDS ORDERED: PROTONIX40 MG PO (14:11)
[2020-01-01] MEDS ORDERED: ZOFRAN ODT4 MG/UDTAB PO (14:11)
[2020-01-01 14:48] VITALS: BP 145/89
== END 2020-01-01 14:35 | disposition home or self-care (01) ==
LOC: D.ER 11:25
PROVIDERS: Family Medicine
DX: K29.70 Gastritis, unspecified, without bleeding (principal); E83.52 Hypercalcemia; R11.2 Nausea with vomiting, unspecified